=== PATIENT | male | born 1990 | race Caucasian/White ===

== ENCOUNTER 2023-05-23 17:34 | Emergency (ER) | payer BC, SELFPAY ==
[2023-05-23 17:38] VITALS: BP 134/93; PULSE 107; RESP 18; TEMP 36.8; O2SAT 108; BMI 28.9
--- NOTE | 2023-05-23 17:51 | XR_ITS ---
The [address] [address] Patient Name: DALE SHINE MRN: [id number] date: 1990 Sex: M Assigned Patient Location: ER Current Patient Location: ER Accession/Order Number: [id number] Exam Date: 05/23/2023 18:18 Report Date: 05/23/2023 18:34 At the request of: ZAC RANDOLPH Procedure: XR chest 2V EXAM: XR chest 2V HISTORY: cough COMPARISON: 11/17/2021 TECHNIQUE: Upright PA and lateral chest x-ray FINDINGS: Interval development of patchy infiltrates in the right mid and lower lung and at the left lower lung. There is no evidence of an effusion or pneumothorax. The heart is not enlarged and the vasculature is not distended. The osseous structures are grossly intact. XR/XR chest 2V IMPRESSION: Patchy bilateral infiltrates, probably seen in the right side. There is no evidence of overt cardiac decompensation. Electronically authenticated by: SHERI CARLISLE Date: 05/23/2023 18:34
[2023-05-23] MEDS: IPRATROPIUM/ALBUTEROL SULFATE 3 ML AMPUL.NEB IH (18:01)
[2023-05-23 18:03] VITALS: PULSE 96; O2SAT 96
[2023-05-23 18:10] LABS: Influenza Virus A Antigen Negative; Influenza Virus B Antigen Negative; Internal Control Within Normal Limits; SARS-CoV-2 Ag NEGATIVE (NEGATIVE)
[2023-05-23 19:06] VITALS: PULSE 93; RESP 18
[2023-05-23] MEDS: ALBUTEROL SULFATE 2.5 MG/3 ML VIAL NEB IH (19:06)
[2023-05-23] MEDS: PREDNISONE 20 MG TABLET 60 MG PO (19:08)
--- NOTE | 2023-05-23 19:09 | ED.GENADUL1 ---
HPI - General Adult General Chief complaint: Upper Respiratory Infection Stated complaint: Flu Like Symptoms Time Seen by Provider: 05/23/23 17:48 Source: patient Mode of arrival: walk-in Limitations: no limitations History of Present Illness HPI narrative: 32-year-old male presents here with chief complaint of chills and shortness of breath. Patient has a history of asthma. He states he has not felt well for the last 3 to 4 days. He has a harsh nonproductive cough. Lung sounds are diminished with crackles noted. He is not hypoxic. He is not currently febrile. He states he took Tylenol 5 hours prior to coming. Related Data Previous Rx's Medication Instructions Recorded albuterol sulfate 2.5 mg/3 mL 1.25 mg (1.5 mL) inhalation Q8H 05/23/23 (0.083 %) solution for nebulization PRN shortness of breath or wheezing #90 mL albuterol sulfate 90 mcg/actuation 2 inh inhalation Q6H PRN shortness 05/23/23 aerosol inhaler of breath or wheezing #8.5 grams levofloxacin 750 mg tablet 750 mg PO DAILY 7 days #7 tabs 05/23/23 prednisone 50 mg tablet 50 mg PO DAILY 5 days #5 tabs 05/23/23 Allergies Allergy/AdvReac Type Severity Reaction Status Date / Time Penicillins Allergy Unknown Verified 05/23/23 17:38 Review of Systems ROS Narrative All Systems are negative except as noted/marked. Exam Constitutional Vital Signs, click to edit/add: Last Vital Signs Temp 98.2 F 05/23/23 17:38 Pulse 93 H 05/23/23 19:06 Resp 18 05/23/23 19:06 BP 134/93 H 05/23/23 17:38 Pulse Ox 96 05/23/23 18:03 O2 Del Method Room Air 05/23/23 18:03 Course Vital Signs Vital signs: Vital Signs Temperature 98.2 F 05/23/23 17:38 Pulse Rate 107 H 05/23/23 17:38 Respiratory Rate 18 05/23/23 17:38 Blood Pressure 134/93 H 05/23/23 17:38 Pulse Oximetry 108 H 05/23/23 17:38 Oxygen Delivery Method Room Air 05/23/23 17:38 Temperature 98.2 F 05/23/23 17:38 Pulse Rate 93 H 05/23/23 19:06 Respiratory Rate 18 05/23/23 19:06 Blood Pressure 134/93 H 05/23/23 17:38 Pulse Oximetry 96 05/23/23 18:03 Oxygen Delivery Method Room Air 05/23/23 18:03 Medical Decision Making [facility] Narrative Medical decision making narrative: 32-year-old male presents here with chief complaint of chills and shortness of breath. Patient has a history of asthma. He states he has not felt well for the last 3 to 4 days. He has a harsh nonproductive cough. Lung sounds are diminished with crackles noted. He is not hypoxic. He is not currently febrile. He states he took Tylenol 5 hours prior to coming. -year-old male presenting with chief complaint of cough congestion. Upon arrival to the emergency room patient had swabs performed which were negative for for COVID and flu. Chest x-ray is positive for infiltrates. Patient is medicated here for pneumonia. He will be discharged home with a prescription of Levaquin prednisone and albuterol. Patient was offered admission and he refused. Patient is not hypoxic. He is stable at this time. Patient told return with any worsening symptoms. Differential Diagnosis Differential Diagnosis: uri, pneumonia Medical Records Medical records reviewed: Yes I reviewed the patient's medical records Lab Data Lab results reviewed: Yes I reviewed the patient's lab results Labs: Lab Results 05/23/23 Range/Units 17:40 Influenza Type A Ag Negative Influenza Type B Ag Negative SARS-CoV-2 Ag (CV2AG) Negative (NEGATIVE) Imaging Data Chest x-ray: Attestation: I have reviewed the pertinent imaging results. Radiologist's impression: ITS Impressions Chest X-Ray 05/23/23 17:51 IMPRESSION: Patchy bilateral infiltrates, probably seen in the right side. There is no evidence of overt cardiac decompensation. Electronically authenticated by: SHERI CARLISLE Date: 05/23/2023 18:34 Discharge Plan Discharge Stand Alone Forms: Portal Instructions Chief Complaint: Upper Respiratory Infection Clinical Impression: Pneumonia Patient Disposition: Home, Self-Care Time of Disposition Decision: 18:43 Condition: Good Prescriptions / Home Meds: New levofloxacin 750 mg tablet 750 mg PO DAILY 7 Days Qty: 7 0RF albuterol sulfate 90 mcg/actuation HFA aerosol inhaler 2 inh inhalation Q6H PRN (Reason: shortness of breath or wheezing) Qty: 8.5 1RF prednisone 50 mg tablet 50 mg PO DAILY 5 Days Qty: 5 0RF albuterol sulfate 2.5 mg /3 mL (0.083 %) solution for nebulization 1.25 mg inhalation Q8H PRN (Reason: shortness of breath or wheezing) Qty: 90 0RF Instructions: Community Acquired Pneumonia (ED) Referrals: Physician,Non-Staff, MD [Primary Care Provider] - 1 week Discharge Date/Time: 05/23/23 19:28
== END 2023-05-23 19:28 | disposition home or self-care (01) ==
PROVIDERS: Physician Assistant; Emergency Provider Emergency Medicine
DX: J18.9 Pneumonia, unspecified organism (principal); Z20.822 Contact with and (suspected) exposure to COVID-19; Z87.09 Personal history of other diseases of the respiratory system
CPT/HCPCS: 71046; 87804; 87811; 94640; 96372; 99285